=== PATIENT | male | born 1940 | race Caucasian/White ===

== ENCOUNTER 2018-11-24 08:14 | Day surgery (SDC) | payer MEDICARE, OTHER ==
[~2018-11-24] VITALS: Ht 182.9 cm; Wt 94.8 kg
[~2018-11-24 08:14] MED LIST: ASPIRIN EC81 MG PO; DOK250 MG PO; HYDROCHLOROTHIA25 MG PO; HYDROCODON-ACE1 EA11 PO; KLOR-CON 1010 MEQ PO; METOPROLOL TAR100 MG PO; MIRALAX17 GM PO; OMEPRAZOLE20 MG PO; OXYCODONE HCL5 MG PO; POTASSIUM CHLO10 MEQ PO; TOPROL XL100 MG PO; VITAMIN C500 M1 PO; XARELTO10 MG PO
[2018-11-24] MEDS ORDERED: AMLODIPINE BESY10 MG PO (08:31)
[2018-11-24] MEDS ORDERED: TYLENOL EXTRA500 MG PO (08:31)
[2018-11-24] MEDS ORDERED: ADVIL LIQUI-GE200 MG PO (08:32)
--- NOTE | 2018-11-24 10:38 | NUR ---
11/24/18 Griselda Patino 1033- PT TO PACU IN LL POSITION ASLEEP. DOES NOT RESPOND TO VOICE OR TACTILE STIMULATION. BREATHING EASY AND UNLABORED ON 3 L O2 VIA NC. SPO2 95%. PASSING GAS.
--- NOTE | 2018-11-24 11:11 | OR ---
[facility] [address], [place] [address] Signed DATE OF OPERATION: 11/24/2018 SURGEON: Sushma Hernandez MD PREOPERATIVE DIAGNOSES: 1. Personal history of colonic polyps. 2. Internal and external hemorrhoids. POSTOPERATIVE DIAGNOSIS: Tmluobo-tu-fiprvgth internal and external hemorrhoids. PROCEDURE PERFORMED: Colonoscopy without biopsy. ESTIMATED BLOOD LOSS: None. INDICATIONS: Ronnell is an 78-year-old gentleman, who returns for a followup colonoscopy. He has a personal history of colonic polyps dating back to 2008. He had a repeat colonoscopy in 2013. He is also known to have internal and external hemorrhoids. No family history of colon cancer or polyps. His father actually of stomach cancer at age 90. His mom from heart failure at age 91. Currently, Ronnell has no lower GI complaints. 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 In the office, I gave him a pamphlet on colonoscopy and we reviewed the nature of the test along with the risks including, but not limited to gas, bloating, crampy abdominal pain, bleeding, perforation requiring surgery, and missed diagnosis. We also discussed the need for IV conscious sedation. He expressed understanding and wished to proceed. PROCEDURE NOTE: Ronnell was taken into our endoscopy suite and placed in the left lateral decubitus position. He was given IV sedation with 7 mg Versed and 150 mcg of fentanyl. A digital rectal exam was performed. He does have some small external hemorrhoids. Prostate is a little indurated and swollen. After this, the adult colonoscope was introduced and advanced all around into the cecum under direct visualization of camera without difficulty. His prep was moderate. He had a couple of areas of liquid particulate stool matter. I could not quite irrigate and suction all that because of the particulate matter, but overall was satisfactory. The scope was slowly withdrawn. We saw no evidence of any pathology throughout the entire colon or rectum. Upon Electronically Signed By: SUSHMA HERNANDEZ MD 11/24/18 1111 PATIENT NAME: RONNELL NERI OPERATIVE REPORT DATE OF : 36 REPORT #: [id number] PHYSICIAN: SUSHMA HERNANDEZ MD PCP: TERESA SAMPSON MD REPORT IS CONFIDENTIAL AND NOT TO BE RELEASED WITHOUT AUTHORIZATION [facility] [address], [place] [address] Signed retroflexion of scope, he does have small internal hemorrhoid columns. The gas was then suctioned out and the colonoscope removed. Ronnell tolerated the procedure quite well. RECOMMENDATIONS: Due to his family longevity and his personal history of colonic polyps, if Ronnell's health holds up, he is welcome to return in 5 years for repeat colonoscopy. MD ZEYNEP Wooten/SAMML /[id number] cc: MD Teresa Wooten MD Copies: SUSHMA HERNANDEZ MD, KEVIN R MD ~ Electronically Signed By: SUSHMA HERNANDEZ MD 11/24/18 1111 PATIENT NAME: RONNELL NERI OPERATIVE REPORT DATE OF : 36 REPORT #: [id number] PHYSICIAN: SUSHMA HERNANDEZ MD PCP: TERESA SAMPSON MD REPORT IS CONFIDENTIAL AND NOT TO BE RELEASED WITHOUT AUTHORIZATION
== END 2018-11-24 11:22 | disposition home or self-care (01) ==
LOC: OPS 08:14 → DS 09:45 → OPS 09:45
PROVIDERS: Colon & Rectal Surgery
PROC: 0DJD8ZZ Inspection of Lower Intestinal Tract, Via Natural or Artificial Opening Endoscopic (ICD-10-PCS; principal; 2018-11-24 09:45)
DX: Z12.11 Encounter for screening for malignant neoplasm of colon (principal); K64.8 Other hemorrhoids; K64.4 Residual hemorrhoidal skin tags; N42.89 Other specified disorders of prostate; I10 Essential (primary) hypertension; E78.5 Hyperlipidemia, unspecified; Z86.010 Personal history of colon polyps; Z98.890 Other specified postprocedural states; Z87.891 Personal history of nicotine dependence; Z79.899 Other long term (current) drug therapy; Z79.82 Long term (current) use of aspirin
CPT/HCPCS: 99153; G0500; J2250; J3010; J3490; J7120

== ENCOUNTER 2019-01-17 18:24 | Emergency (ER) | payer MEDICARE, OTHER ==
[~2019-01-17] VITALS: Ht 182.9 cm; Wt 90.3 kg
--- OUTSIDE RECORDS SUMMARY | ~2019-01-17 | XMS | Clinical Summary ---
Demographics + + + | Address | [address] | | | [place] [address] | + + + | Home Phone | | + + + | Preferred Language | Unknown | + + + | Marital Status | | + + + | Advent Affiliation | 1076 | + + + | Race | Unknown | + + + | Ethnic Group | Unknown | + + + Author + + + | Author | [facility] | | | and [place] | + + + | Organization | [facility] | | | and [place]ana | + + + | Address | Unknown | + + + | Phone | Unavailable | + + + Support + + +---------+ + | Name | Relationship | Address | Phone | + + +---------+ + | Ann Kendrick | ECON | Unknown | | + + +---------+ + Care Team Providers + +------+ + | Care Contracts Intern Name | Role | Phone | + +------+ + | Ronnell Liang MD | PCP | | + +------+ + Allergies No Known Allergies Medications + + + +---------+------+------+-------+ | Medication | Sig | Dispensed | Refills | Star | End | Statu | | | | | | t | Date | s | | | | | | Date | | | + + + +---------+------+------+-------+ | omeprazole | Take 20 mg by mouth | | 0 | | | Activ | | (PRILOSEC) 20 mg | every morning | | | | | e | | capsule | (before breakfast). | | | | | | + + + +---------+------+------+-------+ | amLODIPine | Take 5 mg by mouth | | 0 | | | Activ | | (NORVASC) 5 mg | Daily. | | | | | e | | tablet | | | | | | | + + + +---------+------+------+-------+ | acetaminophen | Take 1,000 mg by | | 0 | | | Activ | | (TYLENOL) 500 mg | mouth every 6 hours | | | | | e | | tablet | as needed for Pain. | | | | | | + + + +---------+------+------+-------+ | aspirin 81 MG | Take 81 mg by mouth | | 0 | | | Activ | | tablet | Daily. 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), | | Spinal stenosis at L4-L5 level (M48.061), | | DDD (degenerative disc disease), lumbar (M51.36) | + + + + + | Foraminal stenosis of lumbar region | 02/19/2016 | + + + | Spinal stenosis at L3/L4 and L4-L5 level | 02/19/2016 | + + + | DDD (degenerative disc disease), lumbar | 02/19/2016 | + + + | Spinal stenosis | | + + + | Low back pain | | + + + Family History + + +---------+ + | Medical History | Relation | Name | Comments | + + +---------+ + | No known problems | Brother | Sudeepal | | + + +---------+ + | Cancer | Father | Fred | | + + +---------+ + | Cancer | Maternal | | Leukemia | | | Grandfath | | | | | er | | | + + +---------+ + | Other (see comment) | Maternal | | MVA | | | Grandmoth | | | | | er | | | + + +---------+ + | Heart disease | Mother | Amara | | + + +---------+ + | Heart failure | Mother | Amara | | + + +---------+ + | No known problems | Paternal | | | | | Grandfath | | | | | er | | | + + +---------+ + | No known problems | Paternal | | | | | Grandmoth | | | | | er | | | + + +---------+ + | Cancer | Son | Jorden | | + + +---------+ + | Other (see comment) | Son | Faina | Epilepsy | + + +---------+ + + +---------+ + + | Relation | Name | Status | Comments | + +---------+ + + | Brother | Marshal | Alive | | + +---------+ + + | Father | Fred | | | | | | (Age | | | | | 90) | | + +---------+ + + | Maternal Grandfather | | | Luekemia | | | | (Age | | | | | 66) | | + +---------+ + + | Maternal Grandmother | | | Status not listed | + +---------+ + + | Mother | Amara | | CHF | | | | (Age | | | | | 92) | | + +---------+ + + | Paternal Grandfather | | | | | | | (Age | | | | | 73) | | + +---------+ + + | Paternal Grandmother | | | | | | | (Age | | | | | 70) | | + +---------+ + + | Son | Jorden | | | | | | (Age | | | | | 33) | | + +---------+ + + | Son | Faina | | | | | | (Age | | | | | 37) | | + +---------+ + + Social History + +-------+ +--------+------+ | Tobacco Use | Types | Packs/Day | Years | Date | | | | | Used | | + +-------+ +--------+------+ | Never Smoker | | | | | + +-------+ +--------+------+ + +---+---+---+ | Smokeless Tobacco: | | | | | Never Used | | | | + +---+---+---+ + + +---------+ + | Alcohol Use | Drinks/We | oz/Week | Comments | | | ek | | | + + +---------+ + | No | 0 | 0.0 | | | | Standard | | | | | drinks or | | | | | | | | | | equivalen | | | | | t | | | + + +---------+ + + + + | Sex Assigned at | Date Recorded | | | | + + + | Not on file | | + + + + + + + | Job Start Date | Occupation | Industry | + + + + | Not on file | Not on file | Not on file | + + + + + + + + | Travel History | Travel Start | Travel End | + + + + + + | No recent travel history available. | + + Last Filed Vital Signs + + + + | Vital Sign | Reading | Time Taken | + + + + | Blood Pressure | 164/94 | 02/18/20181042 PST | + + + + | Pulse | 74 | 02/18/20181042 PST | + + + + | Temperature | 36.9 C (98.4 F) | 05/28/201736 PST | + + + + | Respiratory Rate | 18 | 05/28/2017735 PST | + + + + | Oxygen Saturation | 94% | 05/28/2017735 PST | + + + + | Inhaled Oxygen | - | - | | Concentration | | | + + + + | Weight | 102 kg (224 lb 13.9 | 02/18/20181042 PST | | | oz) | | + + + + | Height | 180.3 cm (5' 11") | 02/18/20181042 PST | + + + + | Body Mass Index | 31.36 | 02/18/20181042 PST | + + + + Plan of Treatment + + + + + | Health Maintenance | Due Date | Last Done | Comments | + + + + + | Vaccine: | | | | | Dtap/Tdap/Td (1 - | 8 | | | | Tdap) | | | | + + + + + | Vaccine: Zoster (1 | | | | | of 2) | 9 | | | + + + + + | Vaccine: | | | | | Pneumococcal 65+ | 4 | | | | Low/Medium Risk (1 | | | | | of 2 - PCV13) | | | | + + + + + | Adult Annual | | | | | Wellness Visit | 6 | | | + + + + + | Vaccine: Influenza | | | | | (#1) | 9 | | | + + + + + Implants + +--------+--------+ +--------+--------+--------+ | Implanted | Type | Area | Manufacture | Device | Shelf | Model | | | | | r | | Expira | / | | | | | | Identi | tion | Serial | | | | | | fier | Date | / Lot | + +--------+--------+ +--------+--------+--------+ | Imp Spn Intbdy Xlw [id number] | Generi | N/A: | NUVASIVE - | | | [id number] | | - [id number]: Qty: 1 | c | Spine | NVSV | | | 5 / / | | on 05/24/2017 by Bora Quijano | | Lumbar | | | | | | MD Femi | | | | | | | + +--------+--------+ +--------+--------+--------+ | Imp Spn Intbdy Xlw [id number] | Generi | N/A: | NUVASIVE - | | | [id number] | | - [id number]: Qty: 1 | c | Spine | NVSV | | | 5 / / | | on 05/24/2017 by Bora Quijano | | Lumbar | | | | | | A, MD | | | | | | | + +--------+--------+ +--------+--------+--------+ | Tlif Oblique [id number] 4deg - | Generi | N/A: | NUVASIVE - | | | [id number] | | [id number]: Qty: 1 | c | Spine | NVSV | | | 4 / / | | on 05/24/2017 by Bora Quijano | | Lumbar | | | | | | A, MD | | | | | | | + +--------+--------+ +--------+--------+--------+ | Tlif Oblique [id number] 12deg | Generi | N/A: | NUVASIVE - | | | [id number] | | - [id number]: Qty: 1 | c | Spine | NVSV | | | 2 / / | | on 05/24/2017 by Bora Quijano | | Lumbar | | | | | | A, MD | | | | | | | + +--------+--------+ +--------+--------+--------+ | Leander Ti Prebent Lordtc 90mm - | Generi | N/A: | NUVASIVE - | | | [id number] | | [id number]: Qty: 2 on | c | Spine | NVSV | | | 0 / / | | 05/24/2017 by Bora Quijano, | | Lumbar | | | | | | MD | | | | | | | + +--------+--------+ +--------+--------+--------+ | Putty [place] 10cc Dbm - | Graft | N/A: | MEDTRONIC - | | 03/24/ | [id number] | | [id number]: Qty: 1 | | Spine | MEDT | | 2020 | | | on 05/24/2017 by Bora Quijano | | Lumbar | | | | /[id number] | | MD Femi | | | | | | 9-026 | | | | | | | | / | + +--------+--------+ +--------+--------+--------+ | Bone Xgrft Infus Kts Sm - | Graft | N/A: | MEDTRONIC - | | 02/02/ | [id number] | | [id number]: Qty: 1 on | | Spine | MEDT | | 2018 | 0 / | | 05/24/2017 by Bora Quijano, | | Lumbar | | | | /[id number] | | MD | | | | | | 03AAD | + +--------+--------+ +--------+--------+--------+ | Screw Polyax Prcpt 7.5x50mm - | Screw | N/A: | NUVASIVE - | | | [id number] | | [id number]: Qty: 4 | | Spine | NVSV | | | 0A / / | | on 05/24/2017 by Bora Quijano | | Lumbar | | | | | | A, MD | | | | | | | + +--------+--------+ +--------+--------+--------+ | Screw Polyax Prcpt 8.5x50mm - | Screw | N/A: | NUVASIVE - | | | [id number] | | [id number]: Qty: 2 | | Spine | NVSV | | | 0A / / | | on 05/24/2017 by Bora Quijano | | Lumbar | | | | | | A, MD | | | | | | | + +--------+--------+ +--------+--------+--------+ | Screw Set - | Screw | N/A: | NUVASIVE - | | | [id number] | | [id number]: Qty: 8 on | | Spine | NVSV | | | 0 / / | | 05/24/2017 by Bora Quijano, | | Lumbar | | | | | | MD | | | | | | | + +--------+--------+ +--------+--------+--------+ | Screw Polyax Precept 6.5x50 - | Screw | N/A: | NUVASIVE - | | | [id number] | | [id number]: Qty: 2 | | Spine | NVSV | | | 0A / / | | on 05/24/2017 by Bora Quijano | | Lumbar | | | | | | A, MD | | | | | | | + +--------+--------+ +--------+--------+--------+ Results Not on filefrom Last 3 Months Insurance + +--------+ +--------+ + +--------+ | Payer | Benefi | Subscriber | Effect | Phone | Address | Type | | | t Plan | ID | hossein | | | | | | / | | Dates | | | | | | Group | | | | | | + +--------+ +--------+ + +--------+ | MEDICARE | MEDICA | [id number] | 10/04/19 | [phone] | | Medica | | | RE | | 04-Pre | 5 | | re | | | PART A | | sent | | | | | | AND B | | | | | | + +--------+ +--------+ + +--------+ | MODA | MODA | [id number] | 06/04/19 | [phone] | [address] | Indemn | | | HEALTH | | 08-Pre | 9 | [phone] | ity | | | MDCR | | sent | | [place], | | | | [place] | | | | [place] [address] | | + +--------+ +--------+ + +--------+ + +--------+ +--------+ + + | Guarantor Name | Accoun | Relation to | Date | Phone | Billing Address | | | t Type | Patient | of | | | | | | | | | | + +--------+ +--------+ + + | Ronnell Kendrick | Person | Self | [birth year] | [address] | | | al/Fam | | 1941 | [phone] | [place] [address] | | | makenzie | | | 1 (Home) | | + +--------+ +--------+ + + Advance Directives Patient has advance care planning documents, and code status on file. For more information, please contact:[facility] [place] [address] + + + + + | Code Status | Date | Date | Comments | | | Activated | Inactivated | | + + + + + | Full Code | 05/24/2017 | 05/28/2017 | | | | 16:18 | 17:04 | | + + + + +
--- OUTSIDE RECORDS SUMMARY | ~2019-01-17 | XMS | Clinical Summary ---
Demographics + + + | Address | [address] | | | [place] [address] | + + + | Home Phone | | + + + | Preferred Language | Unknown | + + + | Marital Status | | + + + | Anabaptism Affiliation | 1076 | + + + | Race | Unknown | + + + | Ethnic Group | Unknown | + + + Author + + + | Author | [facility] | | | and [place]ana[place]ana | + + + | Organization | [facility] | | | and [...] Team Providers + +------+ + | Care Marketing Development Representative Name | Role | Phone | + [...] +--------+--------+ +--------+--------+--------+ | Imp Spn Intbdy Xlw [id number] | Generi | N/A: | NUVASIVE - | | | [id number] | | - [id number]: Qty: 1 | c | Spine | NVSV | | | 5 / / | | on 05/24/2017 by Bora Quijano | | Lumbar | | | | | | MD Femi | | | | | | | + +--------+--------+ +--------+--------+--------+ | Imp Spn Intbdy Xlw [id number] | Generi | N/A: | NUVASIVE - | | | [id number] | | - [id number]: Qty: 1 | c | Spine | NVSV | | | 5 / / | | on 05/24/2017 by Bora Quijano | | Lumbar | | | | | | A, MD | | | | | | | + +--------+--------+ +--------+--------+--------+ | Tlif Oblique [id number] 4deg - | Generi | N/A: | NUVASIVE - | | | [id number] | | [id number]: Qty: 1 | c | Spine | NVSV | | | 4 / / | | on 05/24/2017 by Bora Quijano | | Lumbar | | | | | | A, MD | | | | | | | + +--------+--------+ +--------+--------+--------+ | Tlif Oblique [id number] 12deg | Generi | N/A: | NUVASIVE - | | | [id number] | | - [id number]: Qty: 1 | c | Spine | NVSV | | | 2 / / | | on 05/24/2017 by Bora Quijano | | Lumbar | | | | | | A, MD | | | | | | | + +--------+--------+ +--------+--------+--------+ | Leander Ti Prebent Lordtc 90mm - | Generi | N/A: | NUVASIVE - | | | [id number] | | [id number]: Qty: 2 on | c | Spine | NVSV | | | 0 / / | | 05/24/2017 by Bora Quijano, | | Lumbar | | | | | | MD | | | | | | | + +--------+--------+ +--------+--------+--------+ | Putty [place] 10cc Dbm - | Graft | N/A: | MEDTRONIC - | | 03/24/ | [id number] | | [id number]: Qty: 1 | | Spine | MEDT [...] | MEDTRONIC - | | 02/02/ | [id number] | | [id number]: Qty: 1 on | | Spine | MEDT | | 2018 | 0 / | | 05/24/2017 by Bora Quijano, | | Lumbar | | | | /[id number] | | MD | | | | | | 03AAD | + +--------+--------+ +--------+--------+--------+ | Screw Polyax Prcpt 7.5x50mm - | Screw | N/A: | NUVASIVE - | | | [id number] | | [id number]: Qty: 4 | | Spine | NVSV | | | 0A / / | | on 05/24/2017 by Bora Quijano | | Lumbar | | | | | | A, MD | | | | | | | + +--------+--------+ +--------+--------+--------+ | Screw Polyax Prcpt 8.5x50mm - | Screw | N/A: | NUVASIVE - | | | [id number] | | [id number]: Qty: 2 | | Spine | NVSV | | | 0A / / | | on 05/24/2017 by Bora Quijano | | Lumbar | | | | | | A, MD | | | | | | | + +--------+--------+ +--------+--------+--------+ | Screw Set - | Screw | N/A: | NUVASIVE - | | | [id number] | | [id number]: Qty: 8 on | | Spine | NVSV | | | 0 / / | | 05/24/2017 by Bora Quijano, | | Lumbar | | | | | | MD | | | | | | | + +--------+--------+ +--------+--------+--------+ | Screw Polyax Precept 6.5x50 - | Screw | N/A: | NUVASIVE - | | | [id number] | | [id number]: Qty: 2 | | Spine | NVSV [...] + +--------+ | MEDICARE | MEDICA | [id number] | 10/04/19 | [phone] | | Medica | | | RE | | 04-Pre | 5 | | re | | | PART A | | sent | | | | | | AND B | | | | | | + +--------+ +--------+ + +--------+ | MODA | MODA | [id number] | 06/04/19 | [phone] | [address] | Indemn | | | HEALTH | | 08-Pre | 9 | [phone] | ity | | | MDCR | | sent | | [place], | | | | [place] | | | | [place] [address] | | + +--------+ +--------+ + +--------+ [...] | 1941 | [phone] | [place] [address] | | | makenzie | | | 1 (Home) | | + +--------+ +--------+ + + Advance Directives Patient has advance care planning documents, and code status on file. For more information, please contact:[facility] [place] [address] + + + + + | Code Status | Date | Date | Comments | | | Activated | Inactivated | | + + + + + | Full Code | 05/24/2017 | 05/28/2017 | | | | 16:18 | 17:04 | | + + + + +
[~2019-01-17 18:24] MED LIST changes: +ACETAMINOPHEN-1 EACH PO; +ADVIL LIQUI-GE200 MG PO; +AMLODIPINE BESY10 MG PO; +ASPIRIN EC325 MG PO; +CELECOXIB200 MG PO; +GABAPENTIN300 MG PO; +HEALTHYLAX17 GM PO; +IRON325 M1 PO; +MELATONIN5 M2 PO; -OMEPRAZOLE20 MG PO; +PRILOSEC OTC20 MG PO; +SENNA LAX8.6 MG PO; +TYLENOL EXTRA500 MG PO; +VITAMIN C500 M4 PO
== END 2019-01-17 20:31 | disposition home or self-care (01) ==
LOC: ED 18:24
DX: M96.830 Postprocedural hemorrhage of a musculoskeletal structure following a musculoskeletal system procedure (principal); I10 Essential (primary) hypertension; Z79.899 Other long term (current) drug therapy
CPT/HCPCS: 99283